=== PATIENT | female | born 1955 | race Caucasian/White ===

== ENCOUNTER 2021-05-16 20:07 | Emergency (ER) | payer MEDICARE ==
--- NOTE | 2021-05-16 21:48 | XR ---
EXAMINATION TYPE: XR chest 1V portable DATE OF EXAM: 05/16/2021 COMPARISON: NONE HISTORY: Weakness TECHNIQUE: Single view FINDINGS: Heart and mediastinum are normal. Lungs are clear. Diaphragm is normal. Bony thorax is inta ct. IMPRESSION: Normal chest.
--- NOTE | 2021-05-16 21:51 | ED ---
Dizziness HPI - General Chief Complaint: Dizziness Stated Complaint: Dizziness Time Seen by Provider: 05/16/21 20:53 Source: patient Mode of arrival: wheelchair Limitations: physical limitation - History of Present Illness Initial Comments: 's patient is a 66-year-old woman who presents with a constellation of symptoms that came on tonight around 6:30 PM. Patient states that she had just been talking with family members. She noted that she was feeling lightheaded, dizzy, flushed and had a tingling sensation over her entire body. She states she has had probably 4 episodes of this over the past 2 weeks. Her symptoms have resolved now. The patient did take an aspirin at home prior to coming in here. Patient was not having chest pain, dyspnea, diaphoresis, nausea or vomiting. No headache, change in vision, hearing, speech or swallowing. No focal weakness or sensory loss. MD Complaint: dizziness, lightheadedness, other Onset/Timin -: week(s) Timing: intermittent Description: lightheadedness History of Trauma: No Severity: moderate Improves With: nothing Worsens With: nothing - Related Data Home Medications Medication Instructions Recorded Confirmed No Known Home Medications 05/04/15 05/04/15 Allergies Allergy/AdvReac Type Severity Reaction Status Date / Time No Known Allergies Allergy Verified 05/04/15 04:44 Review of Systems ROS Statement: Those systems with pertinent positive or pertinent negative responses have been documented in the HPI. ROS Other: All systems not noted in ROS Statement are negative. Constitutional: Denies: fever, chills, weakness Eyes: Denies: vision change ENT: Denies: hearing loss Respiratory: Denies: cough, dyspnea, wheezes Cardiovascular: Denies: chest pain, palpitations, edema, syncope Gastrointestinal: Denies: abdominal pain, nausea, vomiting, diarrhea Genitourinary: Denies: dysuria, hematuria Musculoskeletal: Denies: back pain Skin: Denies: rash Neurological: Reports: paresthesias. Denies: headache, weakness, numbness Past Medical History Past Medical History: No Reported History History of Any Multi-Drug Resistant Organisms: None Reported Additional Past Surgical History / Comment(s): tubal ligation Past Psychological History: No Psychological Hx Reported Smoking Status: Never smoker Past Alcohol Use History: None Reported Past Drug Use History: None Reported General Exam Limitations: physical limitation General appearance: alert, in no apparent distress Head exam: Present: atraumatic, normocephalic Eye exam: Present: normal appearance. Absent: scleral icterus, conjunctival injection ENT exam: Present: normal exam Neck exam: Present: normal inspection, full ROM Respiratory exam: Present: normal lung sounds bilaterally. Absent: respiratory distress, wheezes, rales, rhonchi, stridor Cardiovascular Exam: Present: regular rate, normal rhythm, normal heart sounds. Absent: systolic murmur, diastolic murmur, rubs, gallop GI/Abdominal exam: Present: soft. Absent: distended, tenderness, guarding, rebound, rigid, mass Extremities exam: Present: normal inspection, normal capillary refill. Absent: pedal edema, calf tenderness Back exam: Present: normal inspection. Absent: CVA tenderness (R), CVA tenderness (L) Neurological exam: Present: alert, oriented X3, CN II-XII intact. Absent: motor sensory deficit Skin exam: Present: warm, dry, intact, normal color. Absent: rash Course Vital Signs 05/16/21 05/16/21 05/16/21 20:08 20:25 21:00 Temperature 98.2 F Pulse Rate 92 Respiratory 18 20 Rate Blood Pressure 171/90 146/101 O2 Sat by Pulse 99 Oximetry 05/16/21 05/16/21 22:00 23:00 Temperature Pulse Rate 72 67 Respiratory 17 19 Rate Blood Pressure 144/97 132/103 O2 Sat by Pulse Oximetry EKG Findings - EKG Comments: EKG Findings:: Possible old lateral infarct. - EKG Results: EKG: interpreted by DAX, sinus rhythm (Rate 77 bpm), normal axis, normal QRS, normal ST/T Medical Decision Making - Medical Decision Making I discussed the patient's results with her and offered admission for overnight telemetry monitoring, serial cardiac enzymes and cardiology consultation, but at this point she states she is feeling much better. She is asymptomatic and would like to go home. She states she lives [place] and will return if any symptoms recur. 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 Discussed appropriate return parameters as well as follow-up. - Lab Data Result diagrams: 05/16/21 21:45 05/16/21 21:45 Lab Results 05/16/21 05/16/21 05/16/21 Range/Units 21:45 21:45 21:45 WBC 5.7 (3.8-10.6) k/uL RBC 4.89 (3.80-5.40) m/uL Hgb 15.0 (11.4-16.0) gm/dL Hct 43.8 (34.0-46.0) % MCV 89.6 (80.0-100.0) fL MCH 30.7 (25.0-35.0) pg MCHC 34.3 (31.0-37.0) g/dL RDW 12.3 (11.5-15.5) % Plt Count 182 (150-450) k/uL MPV 9.5 Neutrophils % 57 % Lymphocytes % 29 % Monocytes % 8 % Eosinophils % 3 % Basophils % 1 % Neutrophils # 3.3 (1.3-7.7) k/uL Lymphocytes # 1.6 (1.0-4.8) k/uL Monocytes # 0.5 (0-1.0) k/uL Eosinophils # 0.2 (0-0.7) k/uL Basophils # 0.1 (0-0.2) k/uL Sodium 139 (137-145) mmol/L Potassium 3.9 (3.5-5.1) mmol/L Chloride 105 (98-107) mmol/L Carbon Dioxide 27 (22-30) mmol/L Anion Gap 7 mmol/L BUN 20 H (7-17) mg/dL Creatinine 0.63 (0.52-1.04) mg/dL Est GFR (CKD-EPI)AfAm >90 (>60 ml/min/1.73 sqM) Est GFR (CKD-EPI)NonAf >90 (>60 ml/min/1.73 sqM) Glucose 107 H (74-99) mg/dL Plasma Lactic Acid Sukhjinder (0.7-2.0) mmol/L Calcium 10.1 (8.4-10.2) mg/dL Total Bilirubin 0.1 L (0.2-1.3) mg/dL AST 32 (14-36) U/L ALT 30 (4-34) U/L Alkaline Phosphatase 101 (38-126) U/L Troponin I (0.000-0.034) ng/mL Total Protein 6.9 (6.3-8.2) g/dL Albumin 4.4 (3.5-5.0) g/dL Urine Color Colorless Urine Appearance Clear (Clear) Urine pH 7.0 (5.0-8.0) Ur Specific [place] 1.004 (1.001-1.035) Urine Protein Negative (Negative) Urine Glucose (UA) Negative (Negative) Urine Ketones Negative (Negative) Urine Blood Negative (Negative) Urine Nitrite Negative (Negative) Urine Bilirubin Negative (Negative) Urine Urobilinogen <2.0 (<2.0) mg/dL Ur Leukocyte Esterase Small H (Negative) Urine RBC <1 (0-5) /hpf Urine WBC 9 H (0-5) /hpf Ur Squamous Epith Cells <1 (0-4) /hpf 05/16/21 05/16/21 Range/Units 21:45 21:45 WBC (3.8-10.6) k/uL RBC (3.80-5.40) m/uL Hgb (11.4-16.0) gm/dL Hct (34.0-46.0) % MCV (80.0-100.0) fL MCH (25.0-35.0) pg MCHC (31.0-37.0) g/dL RDW (11.5-15.5) % Plt Count (150-450) k/uL MPV Neutrophils % % Lymphocytes % % Monocytes % % Eosinophils % % Basophils % % Neutrophils # (1.3-7.7) k/uL Lymphocytes # (1.0-4.8) k/uL Monocytes # (0-1.0) k/uL Eosinophils # (0-0.7) k/uL Basophils # (0-0.2) k/uL Sodium (137-145) mmol/L Potassium (3.5-5.1) mmol/L Chloride (98-107) mmol/L Carbon Dioxide (22-30) mmol/L Anion Gap mmol/L BUN (7-17) mg/dL Creatinine (0.52-1.04) mg/dL Est GFR (CKD-EPI)AfAm (>60 ml/min/1.73 sqM) Est GFR (CKD-EPI)NonAf (>60 ml/min/1.73 sqM) Glucose (74-99) mg/dL Plasma Lactic Acid Sukhjinder 0.8 (0.7-2.0) mmol/L Calcium (8.4-10.2) mg/dL Total Bilirubin (0.2-1.3) mg/dL AST (14-36) U/L ALT (4-34) U/L Alkaline Phosphatase (38-126) U/L Troponin I <0.012 (0.000-0.034) ng/mL Total Protein (6.3-8.2) g/dL Albumin (3.5-5.0) g/dL Urine Color Urine Appearance (Clear) Urine pH (5.0-8.0) Ur Specific [place] (1.001-1.035) Urine Protein (Negative) Urine Glucose (UA) (Negative) Urine Ketones (Negative) Urine Blood (Negative) Urine Nitrite (Negative) Urine Bilirubin (Negative) Urine Urobilinogen (<2.0) mg/dL Ur Leukocyte Esterase (Negative) Urine RBC (0-5) /hpf Urine WBC (0-5) /hpf Ur Squamous Epith Cells (0-4) /hpf Disposition Clinical Impression: Hypertension Disposition: HOME SELF-CARE Condition: Good Instructions (If sedation given, give patient instructions): Hypertension (ED), Dizziness (ED) Is patient prescribed a controlled substance at d/c from ED?: No Referrals: Amado Her DO [Primary Care Provider] - 1-2 days
[2021-05-16 22:11] LABS: Basophils # (A) 0.1 k/uL (0-0.2); Basophils % (A) 1 %; Eosinophils # (A) 0.2 k/uL (0-0.7); Eosinophils % (A) 3 %; HCT 43.8 % (34.0-46.0); Lymphocytes # (A) 1.6 k/uL (1.0-4.8); Lymphocytes % (A) 29 %; MCH 30.7 pg (25.0-35.0); MCHC 34.3 g/dL (31.0-37.0); MCV 89.6 fL (80.0-100.0); Mean Platelet Volume 9.5; Monocytes # (A) 0.5 k/uL (0-1.0); Monocytes % (A) 8 %; Neutrophils # (A) 3.3 k/uL (1.3-7.7); Neutrophils % (A) 57 %; Platelet Count 182 k/uL (150-450); RBC 4.89 m/uL (3.80-5.40); RDW 12.3 % (11.5-15.5); WBC 5.7 k/uL (3.8-10.6)
[2021-05-16 22:15] LABS: Appearance,Urine Clear (Clear); Bilirubin,Urine Negative (Negative); Blood,Urine Negative (Negative); Color,Urine Colorless; Glucose,Urine (UA) Negative (Negative); Ketones,Urine Negative (Negative); Leukocyte Esterase,Urine Small (Negative); Nitrite,Urine Negative (Negative); Protein,Urine Negative (Negative); RBC,Urine <1 /hpf (0-5); Specific Gravity,Urine 1.004 (1.001-1.035); Squamous Epithelial Cell,Urine <1 /hpf (0-4); Urobilinogen,Urine <2.0 mg/dL (<2.0); WBC,Urine 9 /hpf (0-5)
[2021-05-16 22:24] LABS: ALT 30 U/L (4-34); AST 32 U/L (14-36); African American GFR (CKD) >90 (>60 ml/min/1.73 sqM); Albumin 4.4 g/dL (3.5-5.0); Alkaline Phosphatase 101 U/L (38-126); Anion Gap 7 mmol/L; Blood Urea Nitrogen 20 mg/dL (7-17); Calcium 10.1 mg/dL (8.4-10.2); Carbon Dioxide 27 mmol/L (22-30); Chloride 105 mmol/L (98-107); Glucose 107 mg/dL (74-99); Non-African American GFR(CKD) >90 (>60 ml/min/1.73 sqM); Potassium 3.9 mmol/L (3.5-5.1); Sodium 139 mmol/L (137-145); Total Bilirubin 0.1 mg/dL (0.2-1.3); Total Protein 6.9 g/dL (6.3-8.2)
[2021-05-16] MEDS ORDERED: cloNIDine HCL 0.1 MG TAB PO STA (23:08)
[2021-05-17 00:16] VITALS: BP 143/99; PULSE 77; RESP 17; TEMP 98
== END 2021-05-17 00:16 | disposition home or self-care (01) ==
LOC: EC 20:07
DX: I10 Essential (primary) hypertension (principal)
CPT/HCPCS: 36415; 71045; 80053; 81001; 83605; 84484; 85025; 93005; 99284

== ENCOUNTER 2021-05-23 16:36 | Emergency (ER) | payer MEDICARE ==
[2021-05-23 16:47] VITALS: TEMP 98
[2021-05-23] MEDS ORDERED: SODIUM CHLORIDE 0.9% 1,000 ML IV STA (16:55)
--- NOTE | 2021-05-23 17:12 | ED ---
General Adult HPI - General Chief complaint: Recheck/Abnormal Lab/Rx Stated complaint: High BP Time Seen by Provider: 05/23/21 16:49 Source: patient Mode of arrival: ambulatory Limitations: no limitations - History of Present Illness Initial comments: Dictation was produced using [employer] dictation software. please excuse any grammatical, word or spelling errors. Chief Complaint: 66-year-old female presents to the emergency department for elevated blood pressure. History of Present Illness: 66-year-old female she is recently diagnosed with hypertension. Patient currently takes losartan. She was prescribed losartan by [employer] fishing crew member. Patient has been having recent adjustments to her losartan medications. She states that recently her [employer] fishing crew member told her to take it off however couple days ago she said her [employer] fishing crew member told her to start taking it again. Today she felt some tingling in her head. She took her blood pressure and was found to be in the range of 180/90. This is before she took her losartan for today. Patient has any symptoms at this time. She denies any headache. No chest pain or shortness of breath or strokelike symptoms. The ROS documented in this emergency department record has been reviewed and confirmed by me. Those systems with pertinent positive or negative responses have been documented in the HPI. All other systems are other negative and/or noncontributory. PHYSICAL EXAM: General Impression: Alert and oriented x3, not in acute distress HEENT: Normocephalic atraumatic, extra-ocular movements intact, pupils equal and reactive to light bilaterally, mucous membranes moist. Cardiovascular: Heart regular rate and rhythm Chest: Able to complete full sentences, no retractions, no tachypnea Abdomen: abdomen soft, non-tender, non-distended, no organomegaly Musculoskeletal: Pulses present and equal in all extremities, no peripheral edema Motor: no focal deficits noted Neurological: CN II-XII grossly intact, no focal motor or sensory deficits noted Skin: Intact with no visualized rashes Psych: Normal affect and mood ED course: 66-year-old female presents with asymptomatic hypertension. Vital signs upon arrival are within acceptable limits.Laboratory evaluation obtained. CBC, metabolic panel, TSH level is negative. Patient observed in the emergency Department with improvement of blood pressure to 131/80 without any intervention. Patient told to follow-up with her primary care doctor. - Related Data Home Medications Medication Instructions Recorded Confirmed Losartan Potassium [Cozaar] 50 mg PO DAILY 05/23/21 05/23/21 Rosuvastatin Calcium [Crestor] 5 mg PO HS 05/23/21 05/23/21 Allergies Allergy/AdvReac Type Severity Reaction Status Date / Time No Known Allergies Allergy Verified 05/23/21 17:30 Review of Systems ROS Statement: Those systems with pertinent positive or pertinent negative responses have been documented in the HPI. ROS Other: All systems not noted in ROS Statement are negative. Past Medical History Past Medical History: Hyperlipidemia, Hypertension History of Any Multi-Drug Resistant Organisms: None Reported Past Surgical History: Tubal Ligation Additional Past Surgical History / Comment(s): tubal ligation Past Psychological History: No Psychological Hx Reported Smoking Status: Never smoker Past Alcohol Use History: None Reported Past Drug Use History: None Reported General Exam Limitations: no limitations Course Vital Signs 05/23/21 05/23/21 16:43 17:28 Temperature 98.0 F Pulse Rate 90 78 Respiratory 20 18 Rate Blood Pressure 150/84 143/80 O2 Sat by Pulse 99 98 Oximetry Medical Decision Making - Lab Data Result diagrams: 05/23/21 17:14 05/23/21 17:14 Lab Results 05/23/21 05/23/21 Range/Units 17:14 17:14 WBC 6.7 (3.8-10.6) k/uL RBC 5.14 (3.80-5.40) m/uL Hgb 16.1 H (11.4-16.0) gm/dL Hct 46.6 H (34.0-46.0) % MCV 90.7 (80.0-100.0) fL MCH 31.3 (25.0-35.0) pg MCHC 34.5 (31.0-37.0) g/dL RDW 12.9 (11.5-15.5) % Plt Count 196 (150-450) k/uL MPV 8.4 Neutrophils % 68 % Lymphocytes % 22 % Monocytes % 7 % Eosinophils % 1 % Basophils % 1 % Neutrophils # 4.6 (1.3-7.7) k/uL Lymphocytes # 1.5 (1.0-4.8) k/uL Monocytes # 0.5 (0-1.0) k/uL Eosinophils # 0.1 (0-0.7) k/uL Basophils # 0.1 (0-0.2) k/uL Sodium 138 (137-145) mmol/L Potassium 4.2 (3.5-5.1) mmol/L Chloride 105 (98-107) mmol/L Carbon Dioxide 22 (22-30) mmol/L Anion Gap 11 mmol/L BUN 19 H (7-17) mg/dL Creatinine 0.57 (0.52-1.04) mg/dL Est GFR (CKD-EPI)AfAm >90 (>60 ml/min/1.73 sqM) Est GFR (CKD-EPI)NonAf >90 (>60 ml/min/1.73 sqM) Glucose 115 H (74-99) mg/dL Calcium 9.7 (8.4-10.2) mg/dL TSH 1.890 (0.465-4.680) mIU/L Disposition Clinical Impression: Hypertension Disposition: HOME SELF-CARE Condition: Good Instructions (If sedation given, give patient instructions): Hypertension (ED) Is patient prescribed a controlled substance at d/c from ED?: No Referrals: Amado Her DO [Primary Care Provider] - 1-2 days
[2021-05-23 17:29] VITALS: RESP 18
[2021-05-23 17:38] LABS: Basophils # (A) 0.1 k/uL (0-0.2); Basophils % (A) 1 %; Eosinophils # (A) 0.1 k/uL (0-0.7); Eosinophils % (A) 1 %; HCT 46.6 % (34.0-46.0); HGB 16.1 gm/dL (11.4-16.0); Lymphocytes # (A) 1.5 k/uL (1.0-4.8); Lymphocytes % (A) 22 %; MCH 31.3 pg (25.0-35.0); MCHC 34.5 g/dL (31.0-37.0); MCV 90.7 fL (80.0-100.0); Mean Platelet Volume 8.4; Monocytes # (A) 0.5 k/uL (0-1.0); Monocytes % (A) 7 %; Neutrophils # (A) 4.6 k/uL (1.3-7.7); Neutrophils % (A) 68 %; Platelet Count 196 k/uL (150-450); RBC 5.14 m/uL (3.80-5.40); RDW 12.9 % (11.5-15.5); WBC 6.7 k/uL (3.8-10.6)
[2021-05-23 17:53] LABS: African American GFR (CKD) >90 (>60 ml/min/1.73 sqM); Anion Gap 11 mmol/L; Blood Urea Nitrogen 19 mg/dL (7-17); Calcium 9.7 mg/dL (8.4-10.2); Carbon Dioxide 22 mmol/L (22-30); Chloride 105 mmol/L (98-107); Glucose 115 mg/dL (74-99); Non-African American GFR(CKD) >90 (>60 ml/min/1.73 sqM); Potassium 4.2 mmol/L (3.5-5.1); Sodium 138 mmol/L (137-145)
[2021-05-23 19:09] VITALS: BP 139/93; PULSE 74
== END 2021-05-23 19:08 | disposition home or self-care (01) ==
LOC: EC 16:36
DX: I10 Essential (primary) hypertension (principal); E78.5 Hyperlipidemia, unspecified; Z79.899 Other long term (current) drug therapy
CPT/HCPCS: 36415; 80048; 84443; 85025; 96360; 99283